=== PATIENT | female | born 1960 | race Caucasian/White ===

== ENCOUNTER 2016-12-05 10:42 | Emergency (ER) | payer OTHER ==
[2016-12-05 10:53] VITALS: RESP 16; TEMP 99
--- NOTE | 2016-12-05 11:15 | EDPHY ---
H & P Time Seen by Provider: 12/05/16 10:55 HPI/ROS: CHIEF COMPLAINT: Fever, conjunctivitis, cough HISTORY OF PRESENT ILLNESS: 56-year-old female presents to the emergency department by private vehicle complaining cough, congestion, fever since last Sunday, 8 days ago. 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 She apparently also had several students with respiratory illnesses although they seem to be feeling better now. She has had irritation to both eyes including purulent drainage and mattering in the morning. She does wear contacts however she never sleeps with her contacts in. She has not been wearing her contacts since , 4 days ago when her eye symptoms started. She denies feeling short of breath. She states that the cough is keeping her up at night. She has no pain in her chest. She was complaining of some pressure specially in her right ear. She was developing some hearing loss over the weekend as well as loss of her voice over the weekend. Denies abdominal pain. The patient has a history of chronic bronchitis and has been seen at [facility]. REVIEW OF SYSTEMS: Constitutional: Fever as above Eyes: No double or blurry vision. ENT: Sore throat now resolved Respiratory: Cough, no shortness of breath Cardiac: No chest pain. Gastrointestinal: No abdominal pain, vomiting or diarrhea. Genitourinary: No dysuria. Musculoskeletal: No neck or back pain. Skin: No rashes. Neurological: No headache. Past Medical/Surgical History: Chronic bronchitis, fibromyalgia, Johana's thyroiditis, tonsillectomy, C- section Social History: , works as a professor Smoking Status: Never smoked Physical Exam: General Appearance: Alert, no distress. Temperature 37.2degrees. No respiratory distress. 98% on room air. Eyes: Pupils equal and round. Extraocular motions are all intact. Purulent discharge noted bilaterally specially in the inner and outer canthus. There is mild conjunctival injection. No mattering. No excessive tearing. Normal eye contact. ENT: Mouth: Mucous membranes moist. No posterior pharyngeal injection noted. No postnasal drip seen. She has clear fluid behind both tympanic membranes. No erythema or bulging. No evidence of perforated tympanic membrane. Respiratory: Occasional expiratory wheeze throughout. No rales. No decreased breath sounds. No respiratory distress. Actively coughing at times. Cardiovascular: Regular rate and rhythm. Gastrointestinal: Abdomen is soft and nontender, no masses, no rebound or guarding, bowel sounds normal. Neurological: Alert and oriented x 3, cranial nerves II through XII grossly intact Skin: Warm and dry, no rashes. Musculoskeletal: Nontender to palpate along the cervical, thoracic or lumbar spine. Neck is supple. Extremities: Full range of motion and no peripheral edema. Psychiatric: Patient is oriented X 3, there is no agitation. Constitutional: Initial Vital Signs Temperature (C) 37.2 C 12/05/16 10:51 Heart Rate 71 12/05/16 10:51 Respiratory Rate 16 12/05/16 10:51 Blood Pressure 101/59 L 12/05/16 10:51 O2 Sat (%) 98 12/05/16 10:51 O2 Delivery Mode Room Air Allergies/Adverse Reactions: No Known Allergies Allergy (Verified 12/05/16 10:48) Home Medications: Medication Instructions Recorded Albuterol [Proventil Inhaler HFA 1 - 2 puffs IH Q4PRN PRN #1 mdi 12/05/16 (*)] Azithromycin [Zithromax tab 250 mg] 250 mg PO DAILY #6 tab 12/05/16 CLONAZEPAM 12/05/16 Levocetirizine Dihydrochloride 12/05/16 Lidoderm 5% Patch (*) 12/05/16 Liothyronine Sodium 12/05/16 Montelukast Sodium 12/05/16 Ofloxacin 0.3% [Ocuflox] 1 - 2 drops EACHEYE QID 7 Days 12/05/16 Probiotic Complex 12/05/16 Progesterone 12/05/16 Tretinoin 0.05% Emollient Crm 12/05/16 Zomig 12/05/16 Medical Decision Making ED Course/Re-evaluation: Clinically I think this patient likely has bronchitis. She will be treated with Zithromax, albuterol inhaler. I also encouraged her to use over-the- counter guaifenesin to help relieve congestion. She may also try dextromethorphan to help suppress her cough only at nighttime so she can sleep. Patient was also given Ocuflox ophthalmic drops for conjunctivitis. She was also discouraged from wearing her contacts until her infection has resolved, at least 1 week. She was instructed to return if she develops shortness of breath, fever, chest pain, or if she seems worse in any way. She was comfortable with this plan. Differential Diagnosis: Including but not limited to bronchitis, pneumonia, influenza, viral upper respiratory infection, conjunctivitis, retained foreign body, otitis media, serous otitis, otitis externa Departure - Departure Disposition: Home, Routine, Self-Care Clinical Impression: Acute bronchitis Qualifiers: Bronchitis organism: unspecified organism Qualified Code(s): J20.9 - Acute bronchitis, unspecified Conjunctivitis Qualifiers: Conjunctivitis type: acute Acute conjunctivitis type: bacterial Laterality: bilateral Qualified Code(s): H10.33 - Unspecified acute conjunctivitis, bilateral Condition: Good Instructions: Acute Bronchitis (ED), Conjunctivitis (ED) Additional Instructions: Zithromax as directed for 5 days. Albuterol inhaler 2 puffs every 4 hours for 1 week and then as needed. Ocuflox ophthalmic drops 2 drops 4 times daily to both eyes for 1 week. You may try [id number] Mucinex, guaifenesin, to help relieve congestion in her ears and in your chest. He may also use Delsym, dextromethorphan, to help suppress your cough at night to help you sleep. Return to the emergency department if you develop difficulty breathing, pain in your chest, fevers that do not resolve with ibuprofen or Tylenol, or if you feel worse in any way. Referrals: Maryana Mir MD [Primary Care Provider] - As per Instructions Prescriptions: Albuterol [Proventil Inhaler HFA (*)] 1 - 2 puffs IH Q4PRN PRN #1 mdi PRN Reason: Short Of Breath/Dyspnea Azithromycin [Zithromax tab 250 mg] 250 mg PO DAILY #6 tab Ofloxacin 0.3% [Ocuflox] 1 - 2 drops EACHEYE QID 7 Days
[2016-12-05 11:26] VITALS: BP 97/62; PULSE 68; O2SAT 93
== END 2016-12-05 11:25 | disposition home or self-care (01) ==
DX: J20.9 Acute bronchitis, unspecified (principal); H10.33 Unspecified acute conjunctivitis, bilateral

== ENCOUNTER → 2016-12-11 | Outpatient (CLI) | payer OTHER | LOC: CIMAGING 10:29 | PROVIDERS: ATTEND Obstetrics & Gynecology | DX: Z12.31 Encounter for screening mammogram for malignant neoplasm of breast (principal) | CPT/HCPCS: G0202 ==

== ENCOUNTER 2017-04-13 06:58 | Day surgery (SDC) | payer OTHER ==
[2017-04-13] MEDS ORDERED: LR 1,000 ML IV ONE (07:37)
[2017-04-13] MEDS ORDERED: LIDOCAINE 1% 2 ML INJ ID PRN (07:37)
[2017-04-13] MEDS ORDERED: MIDAZOLAM 2 MG/2 ML VIAL IVP ONE (08:37)
--- NOTE | 2017-04-13 08:40 | PDANEPAE ---
ANE History of Present Illness 57 here for hysteroscopy ANE Past Medical History - Cardiovascular History Hx Hypertension: No Hx Arrhythmias: No Hx Chest Pain: No Hx Coronary Artery / Peripheral Vascular Disease: No Hx CHF / Valvular Disease: Yes Hx Palpitations: No Cardiovascular History Comment: bicusbid aortic valve - Pulmonary History Hx Asthma/Reactive Airway Disease: Yes Hx Oxygen in Use at Home: No Hx Sleep Apnea: No Sleep Apnea Screening Result - Last Documented: Negative Pulmonary History Comment: asthma triggered by mold and hormone issues - Neurologic History Hx Cerebrovascular Accident: No Hx Seizures: No Hx Dementia: No - Endocrine History Hx Diabetes: No Endocrine History Comment: hypothyroid - Renal History Hx Renal Disorders: No - Liver History Hx Hepatic Disorders: No - Neurological & Psychiatric Hx Hx Neurological and Psychiatric Disorders: Yes Neurological / Psychiatric History Comment: migraines, numbness to left calf, cervical issues - Cancer History Hx Cancer: No - Congenital Disorder History Hx Congenital Disorders: Yes Congenital History Comment: bicusbid aortic valve - GI History Hx Gastrointestinal Disorders: Yes Gastrointestinal History Comment: reflux, atropic gastritis, IBS mostly constipation. - Other Health History Other Health History: acne, dry itchy. briuses easily - Chronic Pain History Chronic Pain: Yes (arthritis joints) - Surgical History Prior Surgeries: tonsillectomy. . bilateral bunion sx ANE Review of Systems Review of Systems: - Exercise capacity METS (RN): 4 METS ANE Patient History - Allergies Allergies/Adverse Reactions: No Known Allergies Allergy (Verified 12/05/16 10:48) - Home Medications Home Medications: CLONAZEPAM 12/05/16 [Last Taken 04/12/17] Liothyronine Sodium 12/05/16 [Last Taken 04/12/17] Probiotic Complex 12/05/16 [Last Taken 04/12/17] Tretinoin 0.05% Emollient Crm 12/05/16 [Last Taken 04/12/17] Zomig 12/05/16 [Last Taken 04/12/17] Synthroid 75 mcg (*) DAILY 04/13/17 [Last Taken 04/13/17] - NPO status NPO Since - Liquids (Date): 04/12/17 NPO Since - Liquids (Time): 22:00 NPO Since - Solids (Date): 04/12/17 NPO Since - Solids (Time): 22:00 - Anes Hx Anes Hx: no prior problems - Smoking Hx Smoking Status: Never smoked - Alcohol Use Alcohol Use: Rarely - Family Anes Hx Family Anes Hx: none Family Hx Anesthesia Complications: none ANE Labs/Vital Signs - Vital Signs Blood Pressure: 98/57 Heart Rate: 53 Respiratory Rate: 16 O2 Sat (%): 96 Height: 167.64 cm Weight: 56.699 kg ANE Physical Exam - Airway Neck exam: FROM Mallampati Score: Class 2 Mouth exam: normal dental/mouth exam - Pulmonary Pulmonary: no respiratory distress, clear to auscultation - Cardiovascular Cardiovascular: regular rate and rhythym, no murmur, rub, or gallop - ASA Status ASA Status: II ANE Anesthesia Plan Anesthesia Plan: GA w LMA
--- NOTE | 2017-04-13 08:49 | PDHPUP ---
History & Physical Update H&P update statement: This history and physical update is based on an assessment of the patient which was completed after admission or registration (within 24 hours), but prior to the surgery/procedure. H&P update: H&P reviewed & patient examined, no change in patient's condition since H&P completed
[2017-04-13] MEDS ORDERED: fentaNYL 100 MCG/2 ML INJ ONE (08:51)
[2017-04-13] MEDS ORDERED: LIDOCAINE 2% 100 MG/5 ML SYR ONE (08:51)
[2017-04-13] MEDS ORDERED: PROPOFOL 200 MG/20 ML VIAL ONE (08:51)
[2017-04-13] MEDS ORDERED: DEXAMETHASONE 4 MG/ML VIAL ONE (09:30)
[2017-04-13] MEDS ORDERED: ONDANSETRON 4 MG/2 ML VIAL ONE (09:30)
[2017-04-13] MEDS ORDERED: KETOROLAC 30 MG/1 ML SDV ONE (09:31)
[2017-04-13] MEDS ORDERED: NALOXONE HCL 0.4 MG/ML INJ IVP PRN (09:35)
[2017-04-13] MEDS ORDERED: fentaNYL 100 MCG/2 ML INJ IVP PRN (09:35)
[2017-04-13] MEDS ORDERED: ONDANSETRON 4 MG/2 ML VIAL IVP PRN (09:35)
[2017-04-13] MEDS ORDERED: ACETAMINOPHEN 500 MG TAB PO PRN (09:35)
[2017-04-13] MEDS ORDERED: OXYCODONE/APAP 5/325 TAB PO PRN (09:35)
[2017-04-13] MEDS ORDERED: HYDROCODONE/APAP 5/325 TAB PO PRN (09:35)
[2017-04-13] MEDS ORDERED: PROMETHAZINE HCL 25 MG/ML INJ IVP PRN (09:35)
--- NOTE | 2017-04-13 09:35 | GHP ---
[f rep st] PREOP HISTORY AND PHYSICAL DATE OF ADMISSION: 04/13/2017 PROCEDURE: Hysteroscopy with morcellation of endometrial tissue. INDICATIONS: The patient is a 57-year-old 3, para 1-0-2-1, who has been postmenopausal since 2011. Patient has been using hormone replacement in the form of Biest and progesterone sublingual p reparation for menopausal symptoms and primarily osteoporosis. In November she was studying abroad and f orgot to take her progesterone for a while. She realized that while she was off her progesterone she had significantly decrease in headaches and generally felt better. She wants to continue taking est rogen because of her osteoporosis, but knows that because of the risks of taking unopposed estrogen, she does need to have progesterone of some sort to protect the lining of her uterus. They attempted to do an endometrial biopsy and an IUD placement in the office. However, due to a stenotic cervix, t he patient was not able to have this performed. An ultrasound showed a normal uterus with the except ion of a 0.66 cm thickened lining of the endometrium. Management options were reviewed with the stella ent. Decision was made to proceed with a hysteroscopy with morcellation of endometrial tissue and di lation of her cervix. Because insurance does not cover IUD placement under anesthesia, we will place this at her 2-week postoperative appointment. PAST MEDICAL HISTORY: Significant for fibromyalgia, migraines, osteoporosis, and ADD. MEDICATIONS: Biest. SURGICAL HISTORY: section, dilation and curettage for missed AB, foot surgeries, tonsillect santana. The patient has had a colonoscopy. ALLERGIES: No known drug allergies. SOCIAL HISTORY: The patient is . She lives with her . She denies tobacco or drug use . She does drink alcohol occasionally. FAMILY MEDICAL HISTORY: Noncontributory. [employer] HISTORY: Menarche age 11. Patient has been postmenopausal since age 50. She is a 3, para 1-0-2-1. In 1980 she had a spontaneous . In 04/1984 she had a primary low transverse section of a 7-pound 11-ounce male for breech presentation. In 1989 she had a dilati on and curettage for a missed . Patient denies any history of any abnormal Pap smears or sex ually transmitted diseases. REVIEW OF SYSTEMS: 10-point review of systems is negative with the exception of the positive postmen opausal symptoms. PHYSICAL EXAMINATION: VITAL SIGNS: Stable. GENERAL APPEARANCE: Alert and oriented x3. PSYCHIATRI C: She has appropriate affect. MUSCULOSKELETAL: Grossly intact. NEURO: Grossly intact. NECK: M obile and supple. HEART: Rate is irregularly irregular. LUNGS: Clear to auscultation bilaterally. ABDOMEN: Soft, nondistended, nontender. EXTREMITIES: Reveal no calf tenderness or edema. PELVIC : Exam reveals a mobile midposition uterus with no adnexal masses. Pelvic ultrasound shows the uterus measuring 8 x 4 x 4.6 cm with an endometrium of 0.66 cm and normal ovaries. ASSESSMENT AND PLAN: A 57-year-old 3, para 1-0-2-1, with a thickened endometrium. She will undergo a hysteroscopy with morcellation of endometrial tissue and have an intrauterine device placed at her postop visit. /[id number]/MODL
[2017-04-13 10:39] VITALS: TEMP 97.5
[2017-04-13 10:56] VITALS: BP 103/69; PULSE 57; RESP 14
[2017-04-13 10:59] VITALS: O2SAT 94
--- NOTE | 2017-04-13 21:14 | GOP ---
[f rep st] OPERATIVE REPORT DATE OF OPERATION: 04/13/2017 SURGEON: Pinky Maravilla, ANESTHESIA: General with LMA. ANESTHESIOLOGIST: Julius Geller MD PREOPERATIVE DIAGNOSIS: Thickened endometrium. POSTOPERATIVE DIAGNOSIS: Thickened endometrium. PROCEDURE PERFORMED: Attempted hysteroscopy. FINDINGS: Mobile midposition uterus with no adnexal masses. ESTIMATED BLOOD LOSS: 20 cc. INDICATIONS: Patient is a 57-year-old 3, para 1-0-2-1, who has been postmenopausal since 1. She has been using hormone replacement in the form of Bias and progesterone for menopausal sympto ms and osteoporosis. In November, she was studying abroad and forgot to take her progesterone for a whil e and realized that she had less body aches, less migraines, and generally felt better, so she would like to continue being off the progesterone, but would like to continue her estrogen for her osteopor osis. She had an ultrasound which showed a 6 mm lining of her uterus but otherwise an unremarkable u terus. She has not had any postmenopausal bleeding. We attempted to do a biopsy in the office but w as unsuccessful. The plan was then to place a Mirena IUD after treatment with Cytotec, which was als o unsuccessful. Decision was made to proceed with a hysteroscopy with morcellation of endometrial ti ssue in the and place an IUD at her postop visit. Risks and benefits of the procedure wer e reviewed with the patient and patient was properly consented. DESCRIPTION OF PROCEDURE: Patient was taken to the operating room with intravenous fluids in place. She was then placed on the operating room table in dorsal supine position where general anesthesia w as obtained. She was then repositioned into the dorsal lithotomy position with the Yellofin stirrups and prepped and draped in the normal sterile fashion. Exam under anesthesia revealed a mobile, midp osition uterus with no adnexal masses. A speculum was then placed in the patient's vagina. An Allis clamp was used to grasp the anterior lip of the cervix and the cervix was attempted to be dilated. The opening on the surface of the cervix did not appear to be particularly stenotic. However, even w ith the os finder and the very small dilators, it was not able to find the endocervical canal. I ulsena imchika was able to find what felt to be the endocervical canal and the cervix was then progressively dilated. During that time, I did call for an ultrasound to be brought to the patient's room to eval uate the patient's anatomy better. While it was still waited to be brought to the room, I was able t o dilate the cervix up to 6 mm and hysteroscopy was then introduced with fluid medium running. It ap peared to be partially up within the endometrial cavity. However, there was a fluid deficit of 500 m L rather quickly and as the hysteroscope was then withdrawn it appeared that we were in the false cav ity. The water was turned off. The hysteroscope was then withdrawn completely and a transabdominal ultrasound was performed. When a sound was inserted, it appeared that we were not at the fundus of t he canal. Due to the fluid deficit, I did not reinsert the hysteroscope. I attempted multiple times under ultrasound guidance to place a dilator through the uterus up into the fundus of the uterus but was not able to do so, so for those reasons, the decision was made to terminate the procedure. Instruments were then removed from the patient's vagina and patient's bleeding was noted to be minima l. Patient was returned to the dorsal supine position where she was easily awoken from anesthesia. Sponge count was correct. The patient was transported to recovery room in stable condition. /[id number]/MODL
--- NOTE | 2017-04-16 16:23 | POSTANESTH ---
Post Anesthetic Evaluation Cardiovascular Status: Normal, Stable, Similar to Pre-Op Cond Respiratory Status: Normal, Stable, Similar to Pre-op Cond. Level of Consciousness/Mental Status: Can Participate in Eval, Alert and Oriented Pain Control: Adequate, Prn Tx Ordered Nausea/Vomiting Control: Adequate, Prn Tx Ordered Complications Possibly Related to Anesthesia: None Noted
== END 2017-04-13 11:50 | disposition home or self-care (01) ==
LOC: FSGY 06:58
PROVIDERS: ATTEND Obstetrics & Gynecology
PROC: 0UJD8ZZ Inspection of Uterus and Cervix, Via Natural or Artificial Opening Endoscopic (ICD-10-PCS; principal; 2017-04-13 08:30)
DX: R93.8 Abnormal findings on diagnostic imaging of other specified body structures (principal); M81.0 Age-related osteoporosis without current pathological fracture; Z79.890 Hormone replacement therapy
CPT/HCPCS: J1100; J1885; J2001; J2250; J2405; J2704; J3010

== ENCOUNTER → 2018-10-30 | Outpatient (CLI) | payer OTHER | LOC: CIMAGING 09:59 ==

== ENCOUNTER → 2018-11-15 | Outpatient (CLI) | payer OTHER | LOC: FIMAGING 11:15 ==

== ENCOUNTER → 2018-11-22 | Outpatient (CLI) | payer OTHER | LOC: FIMAGING 09:56 ==